=== PATIENT | female | born 1950 | race Asian ===

== ENCOUNTER 2018-01-08 08:59 | Emergency (ER) | payer OTHER ==
[~2018-01-08] VITALS: Ht 157.5 cm; Wt 33.6 kg
[2018-01-08 09:04] VITALS: Ht 157.5 cm; Wt 33.6 kg
[2018-01-08 09:46] LABS: CALCIUM 8.5 mg/dL (8.5-10.1); CARBON DIOXIDE 29.6 mmol/L (21-32); CHLORIDE SERUM 99 mmol/L (98-107); CREATININE SERUM 0.8 mg/dL (0.6-1.0); GFR1 > 60 mL/min; GLUCOSE SERUM 144 mg/dL (74-106); POTASSIUM SERUM 3.6 mmol/L (3.5-5.1); SODIUM SERUM 136 mmol/L (136-145)
[2018-01-08 09:53] LABS: ALBUMIN 3.4 g/dL (3.4-5.0); ALKALINE PHOSPHATASE 71 U/L (46-116); ALT/SGPT 27 U/L (14-59); AMYLASE 34 U/L (25-115); AST/SGOT 47 U/L (15-37); BILIRUBIN TOTAL 0.7 mg/dL (0.20-1.00); LIPASE 74 IU/L (73-393); TOTAL PROTEIN, SERUM 8.2 g/dL (6.4-8.2)
[2018-01-08 10:27] LABS: BASOPHIL % 0.2 % (0-2); PLATELET COUNT 288 x10^3mcL (130-400); RED CELL DISTRIBUTION WIDTH 14.4 % (11.5-14.5)
[2018-01-08 12:43] VITALS: BP 108/59
== END 2018-01-08 12:43 | disposition home or self-care (01) ==
LOC: ED 08:59
PROVIDERS: Emergency Medicine
DX: K80.50 Calculus of bile duct without cholangitis or cholecystitis without obstruction (principal); K80.80 Other cholelithiasis without obstruction
CPT/HCPCS: J1885; J2405; J3010; J7030; Q0092

== ENCOUNTER 2018-01-21 12:10 | Inpatient (IN) | payer OTHER ==
[~2018-01-21] VITALS: Ht 152.4 cm; Wt 32.2 kg
[2018-01-21 12:21] VITALS: Ht 152.4 cm; Wt 32.2 kg
[2018-01-21 13:28] LABS: RED CELL DISTRIBUTION WIDTH 13.4 % (11.5-14.5)
[2018-01-21 13:29] LABS: PLATELET COUNT 490 x10^3mcL (130-400)
[2018-01-21 13:33] LABS: CALCIUM 8.6 mg/dL (8.5-10.1); CARBON DIOXIDE 34.6 mmol/L (21-32); CHLORIDE SERUM 95 mmol/L (98-107); CREATININE SERUM 0.5 mg/dL (0.6-1.0); GFR1 > 60 mL/min; GLUCOSE SERUM 136 mg/dL (74-106); POTASSIUM SERUM 3.5 mmol/L (3.5-5.1); SODIUM SERUM 131 mmol/L (136-145)
[2018-01-21 13:46] LABS: ALKALINE PHOSPHATASE 66 U/L (46-116); ALT/SGPT 16 U/L (14-59); AMYLASE 46 U/L (25-115); AST/SGOT 19 U/L (15-37); BILIRUBIN TOTAL 0.5 mg/dL (0.20-1.00); CHOLESTEROL 167 mg/dL (<200); HDL CHOLESTEROL 42 mg/dL (40-60); LIPASE 363 IU/L (73-393); T4(THYROXINE) 8.9 ug/dL (4.7-13.3); TOTAL PROTEIN, SERUM 7.6 g/dL (6.4-8.2)
[2018-01-21 13:48] LABS: ALBUMIN 2.8 g/dL (3.4-5.0)
[2018-01-21 14:03] LABS: BAND NEUTROPHIL 5 % (0-10); BASOPHIL 0 % (0-2); MONOCYTE 6 % (0-7); PLATELET MORPHOLOGY PLATELETS INCREASED; SEGMENTED NEUTROPHILS 83 % (37-75); rbc morphology (normal/abnorm) NORMAL (NORMAL)
[2018-01-21] MEDS ORDERED: TRAMADOL HCL50 MG (15:10)
[2018-01-21 16:13] VITALS: BP 131/73
[2018-01-21 17:24] LABS: microscopic required? NO
[2018-01-21 17:28] VITALS: BP 112/61
[2018-01-21 17:31] LABS: UA SPECIFIC GRAVITY <=1.005 (1.005-1.035); urine erythrocyte NEGATIVE (NEGATIVE)
[2018-01-22 05:16] VITALS: BP 104/55
[2018-01-22 06:43] LABS: BASOPHIL % 0.6 % (0-2); PLATELET COUNT 398 x10^3mcL (130-400); RED CELL DISTRIBUTION WIDTH 13.8 % (11.5-14.5)
[2018-01-22 06:56] LABS: ALKALINE PHOSPHATASE 52 U/L (46-116); ALT/SGPT 13 U/L (14-59); AST/SGOT 19 U/L (15-37); BILIRUBIN TOTAL 0.7 mg/dL (0.20-1.00); CALCIUM 8.1 mg/dL (8.5-10.1); CARBON DIOXIDE 29.9 mmol/L (21-32); CHLORIDE SERUM 102 mmol/L (98-107); CREATININE SERUM 0.5 mg/dL (0.6-1.0); GFR1 > 60 mL/min; GLUCOSE SERUM 83 mg/dL (74-106); PHOSPHOROUS 3.6 mg/dL (2.5-4.9); POTASSIUM SERUM 3.2 mmol/L (3.5-5.1); SODIUM SERUM 139 mmol/L (136-145); TOTAL PROTEIN, SERUM 6.2 g/dL (6.4-8.2)
[2018-01-22 06:57] LABS: ALBUMIN 2.3 g/dL (3.4-5.0)
[2018-01-22 09:07] VITALS: BP 106/57
[2018-01-22 15:20] VITALS: BP 115/64
[2018-01-22 16:40] VITALS: BP 112/59
[2018-01-22 20:33] VITALS: BP 106/53
[2018-01-23 05:20] VITALS: BP 100/54
[2018-01-23 08:36] LABS: RED CELL DISTRIBUTION WIDTH 14.1 % (11.5-14.5)
[2018-01-23 08:43] LABS: PLATELET COUNT 428 x10^3mcL (130-400)
[2018-01-23 08:59] VITALS: BP 105/50
[2018-01-23 09:05] LABS: ALBUMIN 2.2 g/dL (3.4-5.0); ALKALINE PHOSPHATASE 63 U/L (46-116); ALT/SGPT 35 U/L (14-59); AST/SGOT 66 U/L (15-37); BILIRUBIN TOTAL 1.09 mg/dL (0.20-1.00); CALCIUM 8.1 mg/dL (8.5-10.1); CARBON DIOXIDE 27.6 mmol/L (21-32); CHLORIDE SERUM 100 mmol/L (98-107); CREATININE SERUM 0.6 mg/dL (0.6-1.0); GFR1 > 60 mL/min; GLUCOSE SERUM 80 mg/dL (74-106); POTASSIUM SERUM 3.6 mmol/L (3.5-5.1); SODIUM SERUM 138 mmol/L (136-145); TOTAL PROTEIN, SERUM 6.5 g/dL (6.4-8.2)
[2018-01-23 14:15] LABS: BAND NEUTROPHIL 6 % (0-10); BASOPHIL 1 % (0-2); MONOCYTE 5 % (0-7); SEGMENTED NEUTROPHILS 82 % (37-75)
[2018-01-23 14:16] LABS: PLATELET MORPHOLOGY PLATELETS INCREASED; rbc morphology (normal/abnorm) NORMAL (NORMAL)
[2018-01-23 16:40] VITALS: BP 101/50
[2018-01-23 21:00] VITALS: BP 96/52
[2018-01-24 05:56] VITALS: BP 98/51
[2018-01-24 06:21] LABS: PLATELET COUNT 326 x10^3mcL (130-400); RED CELL DISTRIBUTION WIDTH 14.1 % (11.5-14.5)
[2018-01-24 06:41] LABS: ALKALINE PHOSPHATASE 49 U/L (46-116); ALT/SGPT 28 U/L (14-59); AST/SGOT 43 U/L (15-37); BILIRUBIN DIRECT 0.19 mg/dL (0.0-0.2); BILIRUBIN TOTAL 0.6 mg/dL (0.20-1.00); CALCIUM 7.7 mg/dL (8.5-10.1); CARBON DIOXIDE 28.3 mmol/L (21-32); CHLORIDE SERUM 100 mmol/L (98-107); CREATININE SERUM 0.4 mg/dL (0.6-1.0); GFR1 > 60 mL/min; GLUCOSE SERUM 68 mg/dL (74-106); SODIUM SERUM 135 mmol/L (136-145)
[2018-01-24 06:48] LABS: ALBUMIN 1.8 g/dL (3.4-5.0); TOTAL PROTEIN, SERUM 5.5 g/dL (6.4-8.2)
[2018-01-24 09:37] VITALS: BP 104/57
[2018-01-24 16:03] VITALS: BP 99/56
[2018-01-24 16:27] LABS: BAND NEUTROPHIL 7 % (0-10); MONOCYTE 6 % (0-7); SEGMENTED NEUTROPHILS 80 % (37-75)
[2018-01-24 16:28] LABS: PLATELET MORPHOLOGY PLATELETS NORMAL; rbc morphology (normal/abnorm) NORMAL (NORMAL)
[2018-01-24 18:56] VITALS: BP 104/52
[2018-01-24 20:41] VITALS: BP 101/48
[2018-01-25 05:42] VITALS: BP 109/53
[2018-01-25 06:48] LABS: BASOPHIL % 0.3 % (0-2); PLATELET COUNT 389 x10^3mcL (130-400); RED CELL DISTRIBUTION WIDTH 12.9 % (11.5-14.5)
[2018-01-25 07:12] LABS: ALKALINE PHOSPHATASE 60 U/L (46-116); ALT/SGPT 22 U/L (14-59); AST/SGOT 27 U/L (15-37); BILIRUBIN DIRECT 0.15 mg/dL (0.0-0.2); BILIRUBIN TOTAL 0.43 mg/dL (0.20-1.00); CALCIUM 7.8 mg/dL (8.5-10.1); CARBON DIOXIDE 31.2 mmol/L (21-32); CHLORIDE SERUM 103 mmol/L (98-107); CREATININE SERUM 0.4 mg/dL (0.6-1.0); GFR1 > 60 mL/min; GLUCOSE SERUM 106 mg/dL (74-106); POTASSIUM SERUM 3.1 mmol/L (3.5-5.1); SODIUM SERUM 138 mmol/L (136-145)
[2018-01-25 07:16] LABS: ALBUMIN 1.8 g/dL (3.4-5.0); TOTAL PROTEIN, SERUM 5.6 g/dL (6.4-8.2)
[2018-01-25 09:28] VITALS: BP 109/62
[2018-01-25 11:31] VITALS: BP 109/62
== END 2018-01-25 18:53 | disposition home health service (06) | DRG 418 ==
LOC: ED 12:10 → MU 14:45
PROVIDERS: Emergency Medicine; Internal Medicine; Internal Medicine Pulmonary Disease
PROC: 0FT44ZZ Resection of Gallbladder, Percutaneous Endoscopic Approach (ICD-10-PCS; principal; 2018-01-23)
PROC: 0DQ94ZZ Repair Duodenum, Percutaneous Endoscopic Approach (ICD-10-PCS; 2018-01-23)
DX: K80.00 Calculus of gallbladder with acute cholecystitis without obstruction (principal); E44.0 Moderate protein-calorie malnutrition; R64 Cachexia; K31.6 Fistula of stomach and duodenum; K82.A1 Gangrene of gallbladder in cholecystitis; K59.00 Constipation, unspecified
CPT/HCPCS: J1170; J1885; J2270; J2405; J2543; J3010; J3480; J3490; J7030; J7040; J7050; J7120; Q0092; Q9966; Q9967

== ENCOUNTER 2018-12-08 08:27 | Emergency (ER) | payer OTHER ==
[~2018-12-08] VITALS: Ht 152.4 cm; Wt 33.6 kg
[~2018-12-08 08:27] MED LIST: TRAMADOL HCL50 MG
[2018-12-08 08:37] VITALS: Ht 152.4 cm; Wt 33.6 kg
[2018-12-08 09:41] LABS: PLATELET COUNT 292 x10^3mcL (130-400); RED CELL DISTRIBUTION WIDTH 14.2 % (11.5-14.5)
[2018-12-08 09:55] LABS: CALCIUM 8.4 mg/dL (8.5-10.1); CARBON DIOXIDE 31.1 mmol/L (21-32); CHLORIDE SERUM 104 mmol/L (98-107); CREATININE SERUM 0.5 mg/dL (0.6-1.0); GFR1 > 60 mL/min; GLUCOSE SERUM 114 mg/dL (74-106); POTASSIUM SERUM 4.1 mmol/L (3.5-5.1); SODIUM SERUM 143 mmol/L (136-145)
[2018-12-08 09:59] LABS: ALKALINE PHOSPHATASE 77 U/L (46-116); ALT/SGPT 17 U/L (14-59); AMYLASE 50 U/L (25-115); AST/SGOT 25 U/L (15-37); BILIRUBIN TOTAL 0.8 mg/dL (0.20-1.00); LIPASE 66 IU/L (73-393); TOTAL PROTEIN, SERUM 8.1 g/dL (6.4-8.2)
[2018-12-08 10:01] LABS: ALBUMIN 3.3 g/dL (3.4-5.0)
[2018-12-08 13:45] VITALS: BP 102/63
== END 2018-12-08 13:45 | disposition short-term general hospital (02) ==
LOC: ED 08:27
PROVIDERS: Emergency Medicine
DX: K80.50 Calculus of bile duct without cholangitis or cholecystitis without obstruction (principal)
CPT/HCPCS: J1885; Q9967